=== PATIENT | female | born 2000 | race Caucasian/White ===

== ENCOUNTER 2022-08-22 15:03 | Outpatient (CLI) | payer OTHER, BC, SELFPAY | END 2022-08-22 15:04 | disposition home or self-care (01) | LOC: LONREF 08-24 09:36 | PROVIDERS: PCP Family Medicine; Visit Provider Family Medicine | DX: R39.9 Unspecified symptoms and signs involving the genitourinary system (principal); N39.0 Urinary tract infection, site not specified | CPT/HCPCS: 87086 ==